=== PATIENT | female | born 1950 | race Caucasian/White ===

== ENCOUNTER 2021-08-03 10:11 | Observation (INO) | payer MEDICARE ==
[2021-08-03] MEDS ORDERED: Calcium Carbonate 500 MG ChewTAB PO PRN (10:55)
[2021-08-03] MEDS ORDERED: Dextrose 50% Abboject 50 ML SYRINGE SLOW IVP PRN (10:55)
[2021-08-03] MEDS ORDERED: Dextrose 5% in Water 1,000 ML IV PRN (10:55)
[2021-08-03] MEDS ORDERED: Ondansetron PF 4 MG/2 ML Vial IVP PRN (10:55)
[2021-08-03] MEDS ORDERED: Acetaminophen 325 MG TAB PO PRN (10:55)
[2021-08-03] MEDS ORDERED: HumaLOG 300 UNITS/3 ML VIAL SC PRN ×2 (10:55)
[2021-08-03] MEDS ORDERED: hydrALAZINE 20 MG/ML VIAL SLOW IVP PRN (10:55)
[2021-08-03] MEDS ORDERED: Bisacodyl 5 MG TAB PO PRN (10:55)
[2021-08-03] MEDS ORDERED: Ondansetron ODT 4 MG TAB PO PRN (10:55)
[2021-08-03] MEDS ORDERED: Bisacodyl 10 MG SUPP PR PRN (10:55)
[2021-08-03] MEDS ORDERED: Senokot S 8.6-50 MG TAB PO PRN (10:55)
[2021-08-03 11:02] VITALS: BMI 28.1
[2021-08-03] MEDS ORDERED: Lisinopril 10 MG TAB PO SCH (14:30)
[2021-08-03] MEDS ORDERED: Amlodipine 5 MG TAB PO SCH (14:30)
[2021-08-03 15:34] LABS: Hemoglobin A1c 6.6 % (4.0-6.0)
[2021-08-03] MEDS: metFORMIN 500 MG TAB PO SCH (17:49)
[2021-08-03] MEDS: Docusate 100 MG CAP PO SCH (20:30)
[2021-08-03] MEDS ORDERED: FATTY ACIDS PO SCH (21:00)
[2021-08-03] MEDS ORDERED: OMEGA PO SCH (21:00)
[2021-08-03] MEDS ORDERED: Acetaminophen 500 MG TAB PO SCH (21:00)
[2021-08-03] MEDS ORDERED: Loratadine 10 MG TAB PO SCH (21:00)
[2021-08-03] MEDS ORDERED: EPA PO SCH (21:00)
[2021-08-03] MEDS ORDERED: Atorvastatin Calcium 40 MG TAB PO SCH ×2 (21:00)
[2021-08-03] MEDS ORDERED: DHA PO SCH (21:00)
[2021-08-03] MEDS ORDERED: Melatonin 3 MG TAB PO SCH ×2 (21:00)
[2021-08-04 05:14] LABS: #Basophils 0.1 thou/uL (0.0-0.2); #Eosinphils 0.1 thou/uL (0.0-0.7); #Lymphocytes 2.6 thou/uL (1.20-3.40); #Monocytes 0.5 thou/uL (0.11-0.59); #Neutrophils 2.9 thou/uL (1.40-6.50); %Basophils 0.8 % (0.0-1.0); %Eosinophils 1.5 % (0.0-10.0); %Lymphocytes 41.5 % (21.0-51.0); %Monocytes 8.5 % (0.0-10.0); %Neutrophils 47.6 % (42.0-75.0); Hemoglobin 14.9 g/dL (12.0-16.0); Mean Corpuscular HGB CONC 32.6 g/dL (32.0-36.0); Mean Corpuscular Hemoglobin 29.9 pg (27.0-31.0); Mean Corpuscular Volume 91.7 fL (78.0-98.0); Platelet Count 170 thou/uL (130-400); RBC Distribution Width 12.9 % (11.5-14.5); White Blood Cell (WBC) Count 6.2 thou/uL (4.8-10.8)
[2021-08-04 05:42] LABS: Anion Gap 12 mmol/L (10-20); BUN (Urea Nitrogen) 11 mg/dL (9.8-20.1); CK (CPK) 152 U/L (29-168); Calc. Creatinine Clearance 81 mL/min (70-130); Calcium 9.6 mg/dL (7.8-10.44); Carbon Dioxide 24 mmol/L (23-31); Chloride 108 mmol/L (98-107); Cholesterol 180 mg/dl (< 200 Desired); Glucose 107 mg/dL (83-110); HDL Cholesterol 36 mg/dL (>60 Neg Risk); LDL Cholesterol, Calculated 107 mg/dL; Magnesium 2.1 mg/dL (1.6-2.6); Potassium 3.4 mmol/L (3.5-5.1); Sodium 141 mmol/L (136-145); Triglycerides 187 mg/dL (Less than 150)
[2021-08-04 05:47] LABS: ALT (SGPT) 26 U/L (8-55); AST (SGOT) 34 U/L (5-34); Albumin 4.2 g/dL (3.4-4.8); Alkaline Phosphatase 62 U/L (40-110); Bilirubin, Direct 0.2 mg/dL (0.1-0.3); Bilirubin, Total 0.6 mg/dL (0.2-1.2)
[2021-08-04] MEDS ORDERED: Multivitamin W/ Minerals 1 TAB PO SCH (09:00)
[2021-08-04] MEDS ORDERED: Clopidogrel Bisulfate 75 MG TAB PO SCH (09:00)
[2021-08-04] MEDS ORDERED: Enoxaparin Sodium 40 MG/0.4 ML SYRINGE SC SCH (09:00)
[2021-08-04] MEDS ORDERED: Acetaminophen 500 MG TAB PO SCH (09:00)
[2021-08-04] MEDS ORDERED: Aspirin 81 mg Enteric Coated Tablet PO SCH (09:00)
[2021-08-04] MEDS ORDERED: Lisinopril 20 MG TAB PO SCH (09:00)
[2021-08-04] MEDS ORDERED: Amlodipine 10 MG TAB PO SCH (09:00)
[2021-08-04] MEDS: Docusate 100 MG CAP PO SCH (09:08)
[2021-08-04] MEDS: metFORMIN 500 MG TAB PO SCH (09:08)
[2021-08-04 16:09] VITALS: TEMP 97.4
[2021-08-04 16:32] VITALS: BP 167/78
== END 2021-08-04 16:15 | disposition home or self-care (01) ==
LOC: NEURO 10:13
PROVIDERS: ADMIT Hospitalist; ATTEND Hospitalist
DX: I16.1 Hypertensive emergency (principal); R51.9 Headache, unspecified; I10 Essential (primary) hypertension; E11.65 Type 2 diabetes mellitus with hyperglycemia; E78.5 Hyperlipidemia, unspecified; I65.22 Occlusion and stenosis of left carotid artery; E87.0 Hyperosmolality and hypernatremia; I69.354 Hemiplegia and hemiparesis following cerebral infarction affecting left non-dominant side; Z79.02 Long term (current) use of antithrombotics/antiplatelets; Z79.82 Long term (current) use of aspirin; Z79.84 Long term (current) use of oral hypoglycemic drugs; Z79.899 Other long term (current) drug therapy; Z88.2 Allergy status to sulfonamides; Z20.822 Contact with and (suspected) exposure to COVID-19; R13.10 Dysphagia, unspecified
CPT/HCPCS: 70551; 74230; 80048; 80061; 80076; 82550; 82962 ×2; 83036; 83735; 84443; 85025; 96372; 97116; 97139 ×4; 97535; G0378 ×2; U0003; U0005; 36415; 36416; J1650

== ENCOUNTER 2022-12-01 09:40 | Outpatient (CLI) | payer MEDICARE ==
[2022-12-01 11:02] LABS: Hematocrit 40.4 % (34.9-44.5); Hemoglobin 13.2 g/dL (12.0-15.5); Mean Corpuscular HGB CONC 32.7 g/dL (32.0-36.0); Mean Corpuscular Hemoglobin 28.8 pg (27.0-33.0); Mean Corpuscular Volume 88.2 fl (81.6-98.3); Mean Platelet Volume 12.8 fl (7.4-10.4); Platelet Count 185 10x3/uL (150-450); RBC Distribution Width 13.8 % (11.5-14.5); Red Blood Cell (RBC) Count 4.58 10x6/uL (3.90-5.03); White Blood Cell (WBC) Count 7.2 10x3/uL (3.5-10.5)
[2022-12-01 11:26] LABS: INR-International Normal Ratio 0.9; Prothrombin Time 10.1 sec (9.5-12.1)
[2022-12-01 11:33] LABS: Anion Gap 14 mmol/L (10-20); BUN (Urea Nitrogen) 16 mg/dL (9.8-20.1); Calc. Creatinine Clearance 0 mL/min (70-130); Calcium 9.4 mg/dL (7.8-10.44); Carbon Dioxide 21 mmol/L (23-31); Chloride 110 mmol/L (98-107); Estimated GFR 91; Glucose 97 mg/dL (83-110); Potassium 4.1 mmol/L (3.5-5.1); Sodium 141 mmol/L (136-145)
== END 2022-12-01 09:41 | disposition home or self-care (01) ==
LOC: LABBT 09:40
PROVIDERS: ATTEND Urology
DX: Z01.818 Encounter for other preprocedural examination (principal); N13.2 Hydronephrosis with renal and ureteral calculous obstruction
CPT/HCPCS: 80048; 85027; 85610; 85730; 93005; 93010

== ENCOUNTER 2022-12-01 13:24 | Outpatient (CLI) | payer MEDICARE | END 2022-12-01 13:25 | disposition home or self-care (01) | LOC: CT 13:24 | PROVIDERS: ATTEND Urology | DX: N13.2 Hydronephrosis with renal and ureteral calculous obstruction (principal); K59.00 Constipation, unspecified; N32.89 Other specified disorders of bladder | CPT/HCPCS: 74176; 80048; 81001; 85027; 85610; 85730; 87086; 93005 ==

== ENCOUNTER 2022-12-02 10:27 | Day surgery (SDC) | payer MEDICARE ==
[2022-12-01 10:13] VITALS: BMI 27.3
[2022-12-02] MEDS ORDERED: LevoFLOXacin 500 mg/D5W 100 ML BAG ONE (11:24)
[2022-12-02] MEDS ORDERED: fentaNYL PF 100 MCG/2 ML SYRINGE ONE (11:46)
[2022-12-02] MEDS ORDERED: Lidocaine 1% PF 5 ML VIAL ONE (11:51)
[2022-12-02] MEDS ORDERED: Ondansetron PF 4 MG/2 ML Vial ONE (11:51)
[2022-12-02] MEDS ORDERED: PROPOFOL 200 MG/20 ML VIAL ONE (11:51)
[2022-12-02] MEDS ORDERED: Oxybutynin 5 MG TAB ONE (12:29)
[2022-12-02] MEDS ORDERED: Phenazopyridine HCl 100 MG TAB ONE (12:29)
== END 2022-12-02 13:45 | disposition home or self-care (01) ==
LOC: SDC 10:27
PROVIDERS: ATTEND Urology
PROC: 0T768DZ Dilation of Right Ureter with Intraluminal Device, Via Natural or Artificial Opening Endoscopic (ICD-10-PCS; principal; 2022-12-02)
DX: N13.2 Hydronephrosis with renal and ureteral calculous obstruction (principal); N81.10 Cystocele, unspecified; I10 Essential (primary) hypertension; N28.1 Cyst of kidney, acquired; Z86.73 Personal history of transient ischemic attack (TIA), and cerebral infarction without residual deficits; Z90.710 Acquired absence of both cervix and uterus; Z79.899 Other long term (current) drug therapy
CPT/HCPCS: 52332; 74018; 74420; C2617; J1956; J2405; J2704

== ENCOUNTER 2022-12-07 09:29 | Outpatient (CLI) | payer MEDICARE ==
[2022-12-07 11:49] LABS: Hematocrit 40.1 % (34.9-44.5); Mean Corpuscular HGB CONC 32.4 g/dL (32.0-36.0); Mean Corpuscular Hemoglobin 28.8 pg (27.0-33.0); Mean Corpuscular Volume 88.9 fl (81.6-98.3); Mean Platelet Volume 12.2 fl (7.4-10.4); Platelet Count 179 10x3/uL (150-450); RBC Distribution Width 13.8 % (11.5-14.5); Red Blood Cell (RBC) Count 4.51 10x6/uL (3.90-5.03); White Blood Cell (WBC) Count 6.2 10x3/uL (3.5-10.5)
[2022-12-07 12:02] LABS: Anion Gap 15 mmol/L (10-20); BUN (Urea Nitrogen) 14 mg/dL (9.8-20.1); Calc. Creatinine Clearance 0 mL/min (70-130); Calcium 9.4 mg/dL (7.8-10.44); Carbon Dioxide 23 mmol/L (23-31); Chloride 109 mmol/L (98-107); Estimated GFR 92; Glucose 109 mg/dL (83-110); Sodium 143 mmol/L (136-145)
[2022-12-07 12:09] LABS: INR-International Normal Ratio 0.9; PTT 27.4 sec (22.0-33.0); Prothrombin Time 10.1 sec (9.5-12.1)
== END 2022-12-07 09:30 | disposition home or self-care (01) ==
LOC: LABBT 09:29
PROVIDERS: ATTEND Urology
DX: Z01.818 Encounter for other preprocedural examination (principal); N13.2 Hydronephrosis with renal and ureteral calculous obstruction; N28.1 Cyst of kidney, acquired; Z86.73 Personal history of transient ischemic attack (TIA), and cerebral infarction without residual deficits; N13.30 Unspecified hydronephrosis; Z79.899 Other long term (current) drug therapy
CPT/HCPCS: 80048; 81001; 85027; 85610; 85730; 87086; 93005; 93010

== ENCOUNTER 2022-12-09 08:28 | Day surgery (SDC) | payer MEDICARE ==
[2022-12-07 10:37] VITALS: BMI 26.9
[2022-12-09] MEDS ORDERED: LevoFLOXacin 500 mg/D5W 100 ML BAG ONE (10:50)
[2022-12-09] MEDS ORDERED: Iopamidol 15 ML ONE (13:36)
[2022-12-09] MEDS ORDERED: fentaNYL 50 mcg/mL 1 mL Vial ONE (13:44)
[2022-12-09] MEDS ORDERED: SUGAMMADEX SODIUM 200 MG/2 ML VIAL ONE ×2 (13:44→15:09)
[2022-12-09] MEDS ORDERED: Rocuronium Bromide 10 MG/ML (10ML VIAL) ONE (14:08)
[2022-12-09] MEDS ORDERED: PROPOFOL 200 MG/20 ML VIAL ONE (14:08)
[2022-12-09] MEDS ORDERED: Lidocaine 1% PF 5 ML VIAL ONE (14:08)
[2022-12-09] MEDS ORDERED: Ondansetron PF 4 MG/2 ML Vial ONE (14:08)
[2022-12-09] MEDS ORDERED: hydrALAZINE 20 MG/ML VIAL ONE (15:33)
[2022-12-09] MEDS ORDERED: Phenazopyridine HCl 100 MG TAB ONE (15:55)
[2022-12-09] MEDS ORDERED: Oxybutynin 5 MG TAB ONE (15:55)
== END 2022-12-09 17:05 | disposition home or self-care (01) ==
LOC: SDC 08:28
PROVIDERS: ATTEND Urology
PROC: 0TFB8ZZ Fragmentation in Bladder, Via Natural or Artificial Opening Endoscopic (ICD-10-PCS; principal; 2022-12-09)
PROC: 0TF78ZZ Fragmentation in Left Ureter, Via Natural or Artificial Opening Endoscopic (ICD-10-PCS; 2022-12-09)
PROC: 0T778DZ Dilation of Left Ureter with Intraluminal Device, Via Natural or Artificial Opening Endoscopic (ICD-10-PCS; 2022-12-09)
DX: N20.2 Calculus of kidney with calculus of ureter (principal); N21.0 Calculus in bladder; N13.30 Unspecified hydronephrosis; N28.1 Cyst of kidney, acquired; N81.10 Cystocele, unspecified; I10 Essential (primary) hypertension; E11.9 Type 2 diabetes mellitus without complications; Z86.73 Personal history of transient ischemic attack (TIA), and cerebral infarction without residual deficits; Z79.84 Long term (current) use of oral hypoglycemic drugs; Z79.899 Other long term (current) drug therapy; Z90.710 Acquired absence of both cervix and uterus; Z88.2 Allergy status to sulfonamides
CPT/HCPCS: 52356; 74018; 74420; 82365; C1747; C1769; C2617; J0360; J3010; 88300; J1956; J2405; J2704; Q9967

== ENCOUNTER 2023-12-14 09:18 | Outpatient (CLI) | payer MEDICARE ==
[2023-12-14 10:50] LABS: %Basophils 1.5 % (0.0-1.0); %Eosinophils 6.3 % (0.0-10.0); %Lymphocytes 31.7 % (21.0-51.0); %Monocytes 7.6 % (0.0-10.0); %Neutrophils 52.6 % (42.0-75.0); Hematocrit 45.1 % (36.0-47.0); Hemoglobin 13.7 g/dL (12.0-16.0); Mean Corpuscular HGB CONC 30.4 g/dL (32.0-36.0); Mean Corpuscular Hemoglobin 26.8 pg (27.0-31.0); Mean Corpuscular Volume 88.3 fL (78.0-98.0); Mean Platelet Volume 12.4 fL (7.4-10.4); Platelet Count 159 10x3/uL (130-400); RBC Distribution Width 15.2 % (11.5-14.5); Red Blood Cell (RBC) Count 5.11 mill/uL (4.20-5.40)
[2023-12-14 10:59] LABS: Anion Gap 15 mmol/L (10-20); BUN (Urea Nitrogen) 11 mg/dL (9.8-20.1); Calc. Creatinine Clearance 0 mL/min (70-130); Calcium 9.4 mg/dL (7.8-10.44); Carbon Dioxide 21 mmol/L (23-31); Chloride 110 mmol/L (98-107); Estimated GFR 91; Glucose 103 mg/dL (83-110); Potassium 3.7 mmol/L (3.5-5.1); Sodium 142 mmol/L (136-145)
[2023-12-14 12:22] LABS: INR-International Normal Ratio 0.9; PTT 24.5 sec (22.9-36.1); Prothrombin Time 12.2 sec (12.0-14.7)
== END 2023-12-14 09:19 | disposition home or self-care (01) ==
LOC: LABBT 09:18
PROVIDERS: ATTEND Urology
DX: Z01.818 Encounter for other preprocedural examination (principal); N20.0 Calculus of kidney; N28.1 Cyst of kidney, acquired; N81.11 Cystocele, midline; N39.41 Urge incontinence; N21.0 Calculus in bladder; Z86.73 Personal history of transient ischemic attack (TIA), and cerebral infarction without residual deficits; Z98.890 Other specified postprocedural states
CPT/HCPCS: 80048; 81001; 85025; 85610; 85730; 87086; 93005; 93010

== ENCOUNTER 2023-12-22 05:45 | Day surgery (SDC) | payer MEDICARE ==
[2023-12-14 09:46] VITALS: BMI 26.4
[2023-12-22] MEDS ORDERED: fentaNYL PF 100 MCG/2 ML SYRINGE ONE (06:46)
[2023-12-22] MEDS ORDERED: Lidocaine 1% PF 5 ML VIAL ONE (06:46)
[2023-12-22] MEDS ORDERED: PROPOFOL 20 ML ONE (06:46)
[2023-12-22] MEDS ORDERED: Dexamethasone 4 mg/ml Vial ONE (06:46)
[2023-12-22] MEDS ORDERED: Ondansetron PF 4 MG/2 ML Vial ONE ×2 (06:46→10:02)
[2023-12-22] MEDS ORDERED: LevoFLOXacin D5W 500 mg (100 mL) BAG ONE (07:04)
[2023-12-22] MEDS ORDERED: SUGAMMADEX SODIUM 200 MG/2 ML VIAL ONE (07:38)
[2023-12-22] MEDS ORDERED: Rocuronium Bromide 10 MG/ML (10ML VIAL) ONE (07:38)
[2023-12-22] MEDS ORDERED: Iopamidol 30 ML ONE (08:48)
[2023-12-22] MEDS ORDERED: Phenazopyridine HCl 100 MG TAB ONE (08:57)
[2023-12-22] MEDS ORDERED: fentaNYL 50 mcg/mL 1 mL Vial ONE ×2 (09:04→09:31)
== END 2023-12-22 11:45 | disposition home or self-care (01) ==
LOC: SDC 05:45
PROVIDERS: ATTEND Urology
PROC: 0TC78ZZ Extirpation of Matter from Left Ureter, Via Natural or Artificial Opening Endoscopic (ICD-10-PCS; principal; 2023-12-22)
PROC: 0T778DZ Dilation of Left Ureter with Intraluminal Device, Via Natural or Artificial Opening Endoscopic (ICD-10-PCS; 2023-12-22)
DX: N20.2 Calculus of kidney with calculus of ureter (principal); I10 Essential (primary) hypertension; E11.9 Type 2 diabetes mellitus without complications; N28.1 Cyst of kidney, acquired; N21.0 Calculus in bladder; N81.11 Cystocele, midline; N39.41 Urge incontinence; Z90.710 Acquired absence of both cervix and uterus; Z98.890 Other specified postprocedural states; Z88.2 Allergy status to sulfonamides; Z79.899 Other long term (current) drug therapy; Z86.73 Personal history of transient ischemic attack (TIA), and cerebral infarction without residual deficits
CPT/HCPCS: 52356; 74018; 74420; 82365; C1747; C1769; C2617; J1100; J1956; J2405; J2704; J3010; Q9967; 88300

== ENCOUNTER 2023-12-30 20:28 | Emergency (ER) | payer MEDICARE ==
[2023-12-30 21:14] LABS: #Basophils 0.07 10x3/uL (0.0-0.2); %Basophils 0.4 % (0.0-1.0); %Eosinophils 1.3 % (0.0-10.0); %Lymphocytes 10.9 % (21.0-51.0); %Monocytes 5.4 % (0.0-10.0); %Neutrophils 81.7 % (42.0-75.0); Hemoglobin 13.6 g/dL (12.0-16.0); Mean Corpuscular HGB CONC 30.9 g/dL (32.0-36.0); Mean Corpuscular Hemoglobin 26.9 pg (27.0-31.0); Platelet Count 243 10x3/uL (130-400); RBC Distribution Width 15.2 % (11.5-14.5); Red Blood Cell (RBC) Count 5.06 mill/uL (4.20-5.40)
[2023-12-30 21:42] LABS: ALT (SGPT) 14 U/L (8-55); AST (SGOT) 17 U/L (5-34); Albumin 3.1 g/dL (3.4-4.8); Alkaline Phosphatase 69 U/L (40-110); Anion Gap 14 mmol/L (10-20); BUN (Urea Nitrogen) 19 mg/dL (9.8-20.1); Bilirubin, Total 0.4 mg/dL (0.2-1.2); Calc. Creatinine Clearance 0 mL/min (70-130); Carbon Dioxide 21 mmol/L (23-31); Chloride 109 mmol/L (98-107); Estimated GFR 78; Globulin 2.8 g/dL (2.4-3.5); Glucose 140 mg/dL (83-110); Potassium 4.1 mmol/L (3.5-5.1); Protein, Total 5.9 g/dL (5.8-8.1); Sodium 140 mmol/L (136-145)
[2023-12-30 21:45] LABS: Troponin I Less than 0.010 ng/mL (< 0.028)
[2023-12-31] LABS: Lactic Acid 1.91 mmol/L (0.5-2.2)
[2023-12-31 00:15] LABS: Bacteria/HPF None Seen HPF (None Seen); Bilirubin 2+ (Negative); Blood, Urine 3+ (Negative); CAUTI Indications for Culture Dysuria,urgency,freq; Calcium Oxalate Crystals 4+ HPF (None Seen); Clarity Extra Turbid (Clear); Glucose, Urine (Dipstick) Normal (Negative); Ketone, Urine Negative (Negative); Leukocyte Negative Leu/uL (Negative); Nitrite 2+ (Negative); Protein, Urine (Dipstick) 70 mg/dL (Neg-Trace); RBC/HPF Greater than 50 HPF (0-3); Specific Gravity, Urine 1.026 (1.002-1.036); Squamous Epithelial None Seen HPF (0-3); WBC/HPF Greater than 50 HPF (0-3); pH, Urine 5.5 (5.0-9.0)
[2023-12-31 00:17] LABS: Urine Culture Reflex Yes Yes
[2023-12-31] MEDS ORDERED: Lidocaine 1% PF 5 ML VIAL ONE (00:40)
[2023-12-31] MEDS ORDERED: cefTRIAXone (ROCEPHIN) 1 GM VIAL ONE (00:41)
== END 2023-12-31 00:40 | disposition home or self-care (01) ==
LOC: ERS 20:28
DX: N39.0 Urinary tract infection, site not specified (principal); R00.0 Tachycardia, unspecified; E11.9 Type 2 diabetes mellitus without complications; I10 Essential (primary) hypertension
CPT/HCPCS: 80053; 81001; 83605; 83880; 84484; 85025; 87040; 87086; 93005 ×2; J0696; 36415; 96374

== ENCOUNTER 2024-03-13 10:25 | Outpatient (CLI) | payer MEDICARE | END 2024-03-13 10:26 | disposition home or self-care (01) | LOC: BICULT 10:25 | PROVIDERS: ATTEND Urology | DX: N28.1 Cyst of kidney, acquired (principal); N20.2 Calculus of kidney with calculus of ureter | CPT/HCPCS: 76770 ==

== ENCOUNTER 2024-04-11 10:28 | Outpatient (CLI) | payer MEDICARE | END 2024-04-11 10:29 | disposition home or self-care (01) | LOC: BICCT 10:28 | PROVIDERS: ATTEND Urology | DX: N13.2 Hydronephrosis with renal and ureteral calculous obstruction (principal); K57.30 Diverticulosis of large intestine without perforation or abscess without bleeding; N21.0 Calculus in bladder | CPT/HCPCS: 74176 ==

== ENCOUNTER 2024-09-25 11:55 | Outpatient (CLI) | payer MEDICARE ==
[2024-09-25] MEDS ORDERED: Furosemide 40 MG (4 mL) VIAL ONE (12:53)
== END 2024-09-25 11:56 | disposition home or self-care (01) ==
LOC: NM 11:55
PROVIDERS: ATTEND Urology
DX: N39.41 Urge incontinence (principal); N13.30 Unspecified hydronephrosis
CPT/HCPCS: 51702; 78708; A4314; A4641; A9562; J1940

== ENCOUNTER 2024-09-29 10:23 | Outpatient (CLI) | payer MEDICARE ==
[2024-09-29] MEDS ORDERED: Iopamidol-370 76% 500 ML BOT (X-RAY USE) FS ONE (10:46)
== END 2024-09-29 10:24 | disposition home or self-care (01) ==
LOC: RAD 10:23
PROVIDERS: ATTEND Urology
DX: N39.41 Urge incontinence (principal); N13.30 Unspecified hydronephrosis
CPT/HCPCS: 51600; 74455; Q9967